=== PATIENT | female | born 2000 | race Hispanic/Latino ===

== ENCOUNTER → 2019-03-19 | Day surgery (SDC) | payer OTHER ==
[2019-03-16 13:54] LABS: BASOPHILS # (AUTO) 0.1 (0.0-0.1); BASOPHILS % 0.5 % (0.0-1.0); EOSINOPHILS # (AUTO) 0.1 (0.0-0.4); EOSINOPHILS % 0.8 % (0.0-6.0); HEMATOCRIT 37.9 % (34.2-44.1); HEMOGLOBIN 11.8 g/dL (12.0-16.0); LYMPHOCYTES # (AUTO) 2.2 (1.0-3.2); LYMPHOCYTES % 22.5 % (18.0-39.1); MEAN CORPUSCULAR HEMOGLOBIN 25.5 pg (28-32); MEAN CORPUSCULAR HGB CONC 31.1 g/dL (31-35); MEAN CORPUSCULAR VOLUME 81.9 fL (81-99); MONOCYTES # (AUTO) 0.5 (0.2-0.8); MONOCYTES % 5.3 % (4.4-11.3); NEUTROPHILS % 70.5 % (38.7-80.0); PLATELET COUNT 404 x10e3/uL (140-360); RED BLOOD COUNT 4.63 x10e6/uL (3.6-5.1); RED CELL DISTRIBUTION WIDTH 14.4 % (11.7-14.4)
[~2019-03-19] MED LIST: BUPIVACAINE HCL 0.5% INJ 30 ML VIAL INJ ONE; CEFAZOLIN SOD 1 GM/NS 50ML 100 ML IV ONE; DEXAMETHASONE SOD PHOS INJ 4 MG/ML VIAL ONE; FENTANYL CITRATE/PF 100MCG/2 ML INJ ONE; KETOROLAC TROMETHAMINE 30 MG/ML VIAL ONE; LIDOCAINE HCL 2% LOCAL INJ 5 ML SDV VIAL INJ ONE; MIDAZOLAM HCL 2 MG/2 ML VIAL ONE; ONDANSETRON HCL INJ 2MG/ML 2ML 2 MG/ML VIAL ONE; PHENYLEPHRINE HCL 1% 10 MG/ML VIAL ONE; PROPOFOL IV EMULSION 10 MG/ML 20 ML VIAL ONE; SEVOFLURANE INHAL SOLN 250 ML PEN BTL ONE
--- OUTSIDE RECORDS SUMMARY | 2019-03-19 10:23 | XMS REPORT ---
Author Author [facility] Address Unknown Phone Unavailable Care Team Providers Care Scientist/Engineer Name Role Phone Unavailable Unavailable Problems This patient has no known problems. Allergies, Adverse Reactions, Alerts This patient has no known allergies or adverse reactions. Medications This patient has no known medications. Encounters Start Date/Time End Date/Time Encounter Type Admission Type Attending [facility] Facility Care Department Encounter ID 2017-05-11 00:00:00 2017-05-11 00:00:00 Outpatient [facility] [id number] 2017-04-07 00:00:00 2017-04-07 00:00:00 Outpatient [facility] [id number] 2017-03-17 00:00:00 2017-03-17 00:00:00 Outpatient [facility] [id number] 2017-02-14 12:55:03 2017-02-14 12:55:03 Outpatient [facility] [id number]
[2019-03-19 15:15] VITALS: BP 115/70
--- NOTE | 2019-03-19 18:55 | Operative Report ---
DATE OF PROCEDURE: 03/19/2019 SURGEON: Alan Lucas MD PREOPERATIVE DIAGNOSIS: Right breast mass. POSTOPERATIVE DIAGNOSIS: Right breast mass. PROCEDURE: Excision of right breast mass. FINANCE CONTROLLER: None. ANESTHESIA: General. INDICATIONS AND FINDINGS: The patient is a 18-year-old female, presenting with complaints of a mass in the right breast present for some time, now it is becoming symptomatic and painful. At Surgery, there was a well-circumscribed tumor within the right breast, which was completely excised, this is about the 9 o'clock position, it is about 2.5 cm in diameter. TECHNIQUE: After adequate general anesthesia, the patient in supine position, the right breast was prepped and draped in sterile fashion with ChloraPrep solution. Transverse incision was made over the mass, carried down through the subcutaneous tissue down into the deeper breast tissues until the mass identified. The mass was completely excised surrounding breast tissues, taking some normal tissue with the mass growth, there was a well-circumscribed tumor about 2.5 cm in diameter. Hemostasis was achieved with electrocautery. The wound was irrigated with saline, inspected for hemostasis, which was seen to be adequate. The wound was then infiltrated with 0.5% Marcaine. The wound was then closed with 3-0 Vicryl subcutaneous tissue and 4-0 Vicryl subcuticular to the skin. Dermabond and sterile dressing were applied. The patient tolerated the procedure well. Estimated blood loss was 5 mL. There were no complications. All counts were correct and the patient was taken to the recovery room in satisfactory condition. MD CLAUDIA ZarateG/MODL /[id number]
== END | disposition home or self-care (01) ==
LOC: OR 10:20
PROVIDERS: ATTEND Surgery
DX: D24.1 Benign neoplasm of right breast (principal); Z01.812 Encounter for preprocedural laboratory examination
CPT/HCPCS: 19120; 36415; 84702; 85025; 88305; J0690; J1100; J1885; J2001; J2250; J2370; J2405; J2704; J3010; 88307